=== PATIENT | female | born 2000 | race Caucasian/White ===

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

== ENCOUNTER 2022-03-27 09:40 | Emergency (ER) | payer BC, SELFPAY ==
[2022-03-27 09:48] VITALS: BP 128/62; PULSE 92; RESP 18; TEMP 37; O2SAT 100
--- NOTE | 2022-03-27 09:49 | ED.URI ---
HPI - URI/Sore Throat General Chief Complaint: Upper Respiratory Infection Stated Complaint: Sore Throat Time Seen by Provider: 03/27/22 09:50 Source: patient Mode of arrival: ambulatory Limitations: no limitations History of Present Illness HPI Narrative: Kendall is a 22-year-old female patient presenting to the clinic today with complaints of sore throat and fever this morning. She reports she tested positive for COVID last week and retested herself 2 days ago and she was negative so she went back to work however this morning she woke up with the sore throat and fever. MD elicited complaint: fever, sore throat and nasal congestion Related Data Home Medications Medication Instructions Recorded Confirmed norethindrone 1 mg-ethinyl tablet PO DAILY 04/07/21 estradiol 20 mcg (24)-iron 75 mg (4) tablet (Samantha 24 Fe) Allergies Allergy/AdvReac Type Severity Reaction Status Date / Time No Known Drug Allergies Allergy Unknown Unverified 08/19/21 09:59 Review of Systems Review of Systems: Pertinent positives per HPI. Patient denies any rash, headache, visual changes, dizziness, cough, shortness of breath, chest pain, palpitations, nausea, vomiting, diarrhea, constipation, abdominal pain, or any urinary issues. PMFSH Past Medical History Medical History Hx of migraines Surgical History Surgical History No history of previous surgery Family History Family History Other Family history non-contributory Social History Social History Smoking status: Never smoker Alcohol intake: never Substance use: never Gender identity (if verbalized by the patient): Female Comments At the time of my signature, I reviewed and agree with the nursing past medical, surgical, social, and family history. There is no relevant family history pertinent to the patient complaint. Exam Narrative: General: Well-developed, well nourished, in no apparent distress Head: Normocephalic, atraumatic Eyes: Pupils equally round and reactive to light bilaterally, EOM intact, sclera and conjunctive clear, no discharge, lids normal Ears: TMs intact and clear, ear canals clear, no drainage, grossly hearing normal. Nose: Nares patent, no discharge, no inflammation, no sinus tenderness. Mouth: Oral pharynx without lesions or masses, good dentition, MMM. Neck: Supple, trachea midline, no enlargement of anterior or posterior cervical nodes, no thyroid masses or goiter palpable. Cardio: Regular rate and rhythm, s1 and s2 normal, no murmur appreciated. Resp: Clear to auscultation bilaterally, no rhonchi, rales, wheezing or rubs Course Course Emergency Course: Portions of this record may have been created with voice recognition software. Level of Care: Express Care Visit Vital Signs Vital signs: Vital Signs Temperature 37.0 C 03/27/22 09:48 Pulse Rate 92 03/27/22 09:48 Respiratory Rate 18 03/27/22 09:48 Blood Pressure 128/62 03/27/22 09:48 Pulse Oximetry 100 03/27/22 09:48 Oxygen Delivery Room Air 03/27/22 09:48 Temperature 37.0 C 03/27/22 09:48 Pulse Rate 92 03/27/22 09:48 Respiratory Rate 18 03/27/22 09:48 Blood Pressure 128/62 03/27/22 09:48 Pulse Oximetry 100 03/27/22 09:48 Oxygen Delivery Room Air 03/27/22 09:48 Vital signs reviewed MDM - URI/Sore Throat MDM Narrative Medical decision making narrative: At the time of visit patient is resting comfortably on the exam table. Strep screen was obtained was negative in the clinic today. I suspect patient has pharyngitis. Will send strep for culture. Supportive measures were discussed with the patient she voiced understanding of discharge instructions and agrees to treatment Different
== END 2022-03-27 10:08 | disposition home or self-care (01) ==
PROVIDERS: Emergency Provider Nurse Practitioner Family
DX: J02.9 Acute pharyngitis, unspecified (principal)
CPT/HCPCS: 87081; 87880; 99213; G0463